=== PATIENT | male | born 1980 | race Caucasian/White ===

== ENCOUNTER 2018-12-23 17:49 | Emergency (ER) | payer MEDICARE, MEDICAID ==
--- NOTE | 2018-12-23 18:20 | ERPHSYRPT ---
- History of Present Illness Time Seen by Provider: 12/23/18 18:05 Source: patient, family Exam Limitations: no limitations Physician History: Pt has seizures every day according to his family for about 27 years. He fell in a parking lot during his last episode, hit the back of his head, his seisure resolved, after brief postictal episode he is alert at his usual mental level of functioning. He denies other injury, or complaints, no focal weakness, visual changes, slurred speech, he sustained a small abrasion on the back of his head. Occurred: just prior to arrival Severity: mild Head Injury Location: occipital Method of Injury: fell, other (during a seizure episode) Loss of Consciousness: seizure Associated Symptoms: nausea, headaches Allergies/Adverse Reactions: No Known Drug Allergies Allergy (Unverified 12/23/18 18:29) Home Medications: Cannabidiol (Cbd) Extract [Epidiolex] 1 ea PO DAILY 12/23/18 [History] Clonazepam 1 mg PO DAILY 12/23/18 [History] Clonazepam 1.5 mg PO HS 12/23/18 [History] Escitalopram Oxalate [Lexapro] 20 mg PO DAILY 12/23/18 [History] Eslicarbazepine Acetate [Aptiom] 600 mg PO HS 12/23/18 [History] Lacosamide [Vimpat] 100 mg PO BID 12/23/18 [History] Lorazepam 1 mg [Ativan 1 MG] 1 mg PO UD 12/23/18 [History] Nortriptyline HCl 20 mg PO HS 12/23/18 [History] lamoTRIgine [Lamotrigine] 300 mg PO BID 12/23/18 [History] - Review of Systems Constitutional: No Symptoms Eyes: No Symptoms Respiratory: No Symptoms Cardiac: No Symptoms Abdominal/Gastrointestinal: Nausea, No Vomiting Musculoskeletal: No Symptoms Skin: Other (abrasion on occipital scalp) Neurological: Headache, Seizure Psychological: No Symptoms All Other Systems: Reviewed and Negative - Nursing Vital Signs Nursing Vital Signs: Initial Vital Signs Temperature 98.6 F 12/23/18 17:55 Pulse Rate 112 H 12/23/18 17:55 Respiratory Rate 18 12/23/18 17:55 Blood Pressure 140/101 12/23/18 17:55 O2 Sat by Pulse Oximetry 98 12/23/18 17:55 Pain Scale Pain Intensity 4 - Zeke Coma Score Best Eye Response (Ephraim): (4) open spontaneously Best Verbal Response (Zeke): (5) oriented Best Motor Response (Ephraim): (6) obeys commands Zeke Total: 15 - Physical Exam General Appearance: no apparent distress Head Injury: tenderness (small abrasion with superficial (3-4 mm) cut to the occipital scalp, no bleeding, or large hematoma, no deformity.) Eye Exam: bilateral eye: PERRL, EOMI ENT Exam: airway nml, No evidence of ENT injury Neck Exam: supple, trachea midline, normal alignment, normal inspection, No muscle spasm Cardiovascular/Respiratory Exam: chest non-tender, normal breath sounds, regular rate/rhythm, heart sounds normal, no ecchymosis, no JVD Gastrointestinal/Abdominal Exam: soft, non tender, no distention, no mass, no guarding, no ecchymosis Back Exam: normal inspection, other (mild scoliosis and kyphosis), No CVA tenderness, No vertebral tenderness Extremity Exam: non-tender Mental Status Exam: 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, 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, 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 Exam: normal speech, PERRL Coordination/Gait Exam: normal gait Motor/Sensory Exam: no motor deficit DTR Exam: bicep (R): 2+, bicep (L): 2+, knee (R): 2+, knee (L): 2+ Skin Exam: normal color, warm, dry, No rash, No cyanosis, No diaphoresis Lymphatic Exam: No adenopathy SpO2 Interpretation: normal O2 Delivery: Room Air - Course Nursing assessment & vital signs reviewed: Yes - CT Exams Head CT Interpretation: Negative, Tele-radiologist Report Cervical Spine CT Interpretation: Negative, Tele-radiologist Report, DJD Ordered Tests: Active Orders 24 hr Category Date Time Status CERVICAL SPINE WO CONTRAST [CT] Stat Exams 12/23/18 18:14 Taken HEAD WITHOUT CONTRAST [CT] Stat Exams 12/23/18 18:14 Taken - Progress Progress: unchanged Progress Note: 12/23/18 19:29 Pt remains asymptomatic, except headaches, alert and oriented, denies nausea, severe dizziness, reviewed his CT results, discussed with him and his family, he is being discharged after his wound cleansed to home to rest, continue his seizure medications as directed, and follow up with his physician in 2-3 days. Counseled pt/family regarding: diagnosis, need for follow-up, rad results - Departure Departure Disposition: Home Clinical Impression: Seizure Scalp laceration Qualifiers: Encounter type: initial encounter Qualified Code(s): S01.01XA - Laceration without foreign body of scalp, initial encounter Condition: Stable Critical Care Time: No Referrals: LORA STEARNS II [Primary Care Provider] - Instructions: Closed Head Injury (DC), Wound Care (DC), Seizures, Adult (DC) Additional Instructions: Continue seizure medications as directed, and follow up with his physician in 2- 3 days, return if severe headaches, vomiting, lethargy !
[2018-12-23 19:08] VITALS: PULSE 104
[2018-12-23 20:01] VITALS: BP 147/86; O2SAT 97
--- NOTE | 2018-12-24 08:51 | XRAY ---
Indication: Status post seizure. Neck pain following fall. Multiple contiguous axial images obtained through the cervical spine. Sagittal and coronal reformatted images obtained. Comparison: None Axial images negative for acute fracture, suspicious bony lesions, or spinal canal stenosis. Mild/moderate multilevel bilateral degenerative facet hypertrophy. Sagittal and coronal reformatted images images normal alignment with vertebral body heights and disc spaces maintained. No acute compression fracture, subluxation, or jumped facet. Normal appearing craniocervical junction. Visualized noncontrasted soft tissues demonstrates partially visualized stimulator leads on the right. Lung apices and base of the brain unremarkable. Impression: 1. Negative acute fracture/subluxation. 2. Incidental multilevel degenerative facet hypertrophy. Comment: Preliminary interpretation was made by [facility]. No discrepancy. CTDI 62.44
--- NOTE | 2018-12-24 08:54 | XRAY ---
Indication: Status post seizure. Head injury following fall. Multiple contiguous axial images obtained through the head without contrast. Comparison: None There are intracranial and extracranial stimulator leads terminating in the lateral ventricles bilaterally. No acute intracranial hemorrhage, abnormal extra-axial fluid collection, or mass effect. Fourth image was midline without hydrocephalus. Cormier-white matter differentiation preserved. Bony calvarium intact. Visualized paranasal sinuses and mastoid air cells are clear. Impression: No acute intracranial abnormalities. Comment: Preliminary interpretation was made by [facility]. No discrepancy. CTDI 70.00
== END 2018-12-23 20:06 | disposition home or self-care (01) ==
LOC: ED 17:49
DX: G40.909 Epilepsy, unspecified, not intractable, without status epilepticus (principal); S01.01XA Laceration without foreign body of scalp, initial encounter; S00.01XA Abrasion of scalp, initial encounter; R51 Headache; W01.119A Fall on same level from slipping, tripping and stumbling with subsequent striking against unspecified sharp object, initial encounter; Y93.9 Activity, unspecified; Y92.481 Parking lot as the place of occurrence of the external cause; Z79.899 Other long term (current) drug therapy
CPT/HCPCS: 70450; 72125; 99283